=== PATIENT | female | born 1975 | race Hispanic/Latino ===

== ENCOUNTER 2018-04-01 14:49 | Outpatient (CLI) | payer OTHER | END 2018-04-01 14:50 | disposition home or self-care (01) | LOC: BICMAMMO 14:49 | PROVIDERS: ATTEND Physician Assistant | DX: Z12.31 Encounter for screening mammogram for malignant neoplasm of breast (principal) | CPT/HCPCS: 77063; 77067 ==

== ENCOUNTER 2019-01-31 21:51 | Emergency (ER) | payer OTHER ==
[2019-01-31 23:58] LABS: HIV (1/2) Antibody/Antigen Non-Reactive (NonReactive); HIV 1/2 INDEX 0.22 S/CO (<1.00); Hep C IgG Ab Non-Reactive (NonReactive); Hep C Index 0.11 S/CO (0-0.79)
[2019-02-01 00:41] LABS: HBSAB Concentration 3711.79 mIU/mL; Hep B Surf AB Reactive (NonReactive)
== END 2019-02-01 00:39 | disposition home or self-care (01) ==
LOC: ERS 21:51
DX: S71.132A Puncture wound without foreign body, left thigh, initial encounter (principal); W26.8XXA Contact with other sharp object(s), not elsewhere classified, initial encounter
CPT/HCPCS: 36415; 86706; 86803; 87389; 99283

== ENCOUNTER 2020-01-16 14:47 | Outpatient (CLI) | payer OTHER ==
--- NOTE | 2020-01-16 15:37 | RAD ---
PA AND LATERAL OF THE CHEST: INDICATION: Cough for 1 week. COMPARISON: Prior exam dated 08/02/2010. FINDINGS: Lungs are clear. Heart size is normal. No acute osseous abnormality is evident. IMPRESSION: No acute cardiopulmonary abnormality. POS: CET
== END 2020-01-16 14:48 | disposition home or self-care (01) ==
LOC: BICRAD 14:47
PROVIDERS: ATTEND Family Medicine
DX: R05 Cough (principal)
CPT/HCPCS: 71046